=== PATIENT | female | born 1995 | race Asian ===

== ENCOUNTER 2016-06-01 18:14 | Emergency (ER) | payer OTHER ==
[~2016-06-01] VITALS: Ht 149.9 cm; Wt 45.0 kg
[2016-06-01 21:47] VITALS: BP 116/73
== END 2016-06-01 21:47 | disposition home or self-care (01) ==
LOC: ED 18:14
DX: B34.9 Viral infection, unspecified (principal); J02.9 Acute pharyngitis, unspecified; Z79.899 Other long term (current) drug therapy
CPT/HCPCS: 87804; Q0163